=== PATIENT | female | born 1950 | race Caucasian/White ===

== ENCOUNTER → 2016-05-08 | Outpatient (CLI) | payer BC ==
--- NOTE | 2016-05-11 13:47 | MAMMOGRAPHY REPORT ---
BILATERAL DIGITAL SCREENING MAMMOGRAM WITH CAD: 05/08/2016 TECHNIQUE: Current study was also evaluated with a Computer Aided Detection (CAD) system. Bilatera l CC and MLO views were obtained. COMPARISON: Comparison is made to exams dated: 05/06/2015 mammogram, 05/04/2014 mammogram, 05/03/2013 mammogram, 05/01/2011 mammogram, 05/02/2012 mammogram, and 04/30/2010 mammogram - [facility]. BREAST COMPOSITION: There are scattered areas of fibroglandular density in both breasts. FINDINGS: No suspicious masses, calcifications, or areas of architectural distortion are noted in e ither breast. There has been no significant interval change compared to prior exams. IMPRESSION: ACR BI-RADS CATEGORY 1: NEGATIVE There is no mammographic evidence of malignancy. A 1 year screening mammogram is recommended. The p atient will receive written notification of the results. Approximately 10% of breast cancers are not detected with mammography. A negative mammographic repor t should not delay biopsy if a clinically suggestive mass is present. Alanna Walsh M.D. ah/:05/08/2016 12:12:03 Bid Clerk: Rayna FLYNN(Linda)(M), [facility] letter sent: Normal 1/2 BI-RADS Code: ACR BI-RADS Category 1: Negative
== END | disposition home or self-care (01) ==
LOC: C.MAMM 10:24
PROVIDERS: ATTEND Obstetrics & Gynecology
DX: Z12.31 Encounter for screening mammogram for malignant neoplasm of breast (principal)

== ENCOUNTER → 2017-01-11 | Outpatient (CLI) | payer BC ==
[2017-01-11 12:52] LABS: HEMATOCRIT 43.5 % (37-47); MEAN CELL VOLUME 92.4 fL (80-100); MEAN CORPUSCULAR HEMOGLOBIN 31.2 pg (25-34); MEAN CORPUSCULAR HGB CONC 33.8 g/dl (32-36); MEAN PLATELET VOLUME 11.2 fL (7.4-10.4); PLATELET COUNT 238 K/uL (130-400); RED BLOOD COUNT 4.71 M/uL (4.2-5.4); WHITE BLOOD COUNT 6.34 K/uL (4.8-10.8)
[2017-01-11 13:24] LABS: ALT/SGPT 36 U/L (12-78); AST/SGOT 22 U/L (15-37); BLOOD UREA NITROGEN 16 mg/dl (7-18); BUN/CREATININE RATIO 19.9 (10-20); CALCIUM 8.8 mg/dl (8.5-10.1); CARBON DIOXIDE 29 mmol/L (21-32); CHLORIDE 105 mmol/L (98-107); GLUCOSE 79 mg/dl (70-99); MAGNESIUM 2.1 mg/dl (1.8-2.4); POTASSIUM 4.3 mmol/L (3.5-5.1); SODIUM 139 mmol/L (136-145)
[2017-01-11 13:26] LABS: ALKALINE PHOSPHATASE 55 U/L (45-117); PHOSPHORUS 3.4 mg/dl (2.5-4.9)
[2017-01-11 13:28] LABS: BASO ABS # 0.11 K/uL (0-0.2); BASOPHIL % 1.8 %; EOSINOPHIL % 4.4 %; LYMPH ABS # 1.11 K/uL (1.2-3.4); LYMPHOCYTE % 17.5 %; MDIFF REQUEST Y; NEUTROPHILS % 56.1 %; VARIANT LYM ABS # 0.78 K/uL; VARIANT LYMPHOCYTE % 12.3 %
== END | disposition home or self-care (01) ==
LOC: C.LABPVFM 10:03
PROVIDERS: ATTEND Internal Medicine Hematology & Oncology
DX: C18.7 Malignant neoplasm of sigmoid colon (principal)

== ENCOUNTER → 2017-05-11 | Outpatient (CLI) | payer BC ==
--- NOTE | 2017-05-13 08:03 | MAMMOGRAPHY REPORT ---
BILATERAL DIGITAL SCREENING MAMMOGRAM TOMOSYNTHESIS WITH CAD: 05/11/2017 CLINICAL HISTORY: Routine screening. Patient has no complaints. TECHNIQUE: Breast tomosynthesis in addition to standard 2D mammography was performed. Current study was also evaluated with a Computer Aided Detection (CAD) system. COMPARISON: Comparison is made to exams dated: 05/08/2016 mammogram, 05/06/2015 mammogram, 05/04/2014 ma mmogram, 05/03/2013 mammogram, 05/02/2012 mammogram, and 04/30/2010 mammogram - [facility]ter. BREAST COMPOSITION: There are scattered areas of fibroglandular density in both breasts. FINDINGS: The parenchymal pattern is unchanged. No developing mass, architectural distortion or clus ter of suspicious microcalcifications is seen in either breast. IMPRESSION: ACR BI-RADS CATEGORY 2: BENIGN There is no mammographic evidence of malignancy. A 1 year screening mammogram is recommended. The pa tient will receive written notification of the results. Approximately 10% of breast cancers are not detected with mammography. A negative mammographic report should not delay biopsy if a clinically suggestive mass is present. Kelsy Villa M.D. ay/:05/11/2017 16:32:57 Construction Sales Manager: Bri White, [facility] letter sent: Normal 1/2 BI-RADS Code: ACR BI-RADS Category 2: Benign
== END | disposition home or self-care (01) ==
LOC: C.MAMM 10:03
PROVIDERS: ATTEND Obstetrics & Gynecology
DX: Z12.31 Encounter for screening mammogram for malignant neoplasm of breast (principal)

== ENCOUNTER 2021-08-25 07:24 | Observation (INO) ==
--- NOTE | 2021-08-18 11:40 | History & Physical Report ---
Date of Service August 18, 2021 Assessment & Plan (1) Fracture of head of right humerus: Plan: PRE-OP Diagnosis: Right proximal humerus fracture Planned Procedure: Right reverse total shoulder arthroplasty Plan: Patient is scheduled to undergo this procedure at the [facility] with Dr. Vitor Lopez on Wednesday, September 02, 2021. Risks and complications of the procedure such as: Infection, bleeding, pain, scarring, nerve blood vessel damage, weakness, wound problems, stiffness, incomplete relief of symptoms, hardware failure, hardware loosening, wear, fracture, tendon or ligament injury, blood clots, embolism, heart attack, stroke and were explained to the patient at her visit today. Informed consent from the procedure was obtained. Patient also understands risks of proceeding with surgical intervention during the COVID-19 pandemic currently she is asymptomatic and understands that she will need to be tested prior to surgery. Patient is scheduled to meet with anesthesia next week. While there she will obtain a CBC with differential, complete metabolic panel, PT/INR, PTT, blood type and screen, urinalysis, urine culture and sensitivity, EKG, chest x-ray, hemoglobin A1c. We will also need to obtain preoperative medical clearance from the patient's primary care provider Dr. Russ.Patient was advised that she will be admitted for overnight stay for pain control. She will be provided with prescriptions for pain relieving agents upon discharge from the hospital. She is scheduled for her initial physical therapy appointment in our PT clinic on August 28 at 10:30 AM. She will see Lauren Marcus PA-C on September 04 at 10:45 AM for 2-week postoperative follow-up. Patient and verbalized understanding of all information provided during today's visit. They thanked us for the care that they have received. If they have questions or concerns arise prior to that appointment, they will contact clinic. Encounter type: initial encounter Fracture type: closed Qualified Code(s): S42.291A - Other displaced fracture of upper end of right humerus, initial encounter for closed fracture History of Present Illness Chief Complaint: Chief Complaint: Right shoulder injury Primary Care Provider: Kassie Tubbs MD History of Present Illness (including history relevant to procedure): This 70-year-old female presents the clinic today for her initial evaluation by Dr. Oma couch for a right shoulder proximal humerus fracture that she sustained after walking in the [place] with a [employer] group yesterday. Patient states she tripped and fell on her outstretched right upper extremity. She was seen at the emergency department, diagnosed with a fracture and advised to follow-up with an reliability specialist. After the x-ray confirmed the fracture a CT was also ordered for surgical purposes. Review Of Systems: A 12 point review of systems is formed and is unremarkable except for those things stated in the HPI and past medical history. Past Medical History: Problems: Proximal humerus fracture Shoulder injury History of colon cancer Procedure History Procedure Procedure Date Comments Colon resection 2004 Allergies and Sensitivities: Adhesive bandage(Itch) Social history: Completely unremarkable Family history: Cancer Current Home Meds: (Last Updated 08/14 12:11) alendronate (Fosamax 70 mg oral tablet) 70 mg PO weekly calcium carbonate (Caltrate) PO Daily multivitamin PO Daily ondansetron (Zofran 4 mg oral tablet) 4 mg PO q8h PRN: as needed for nausea/vomiting unknown medication pain med from ER Vital Signs: Height: 154 cm; weight: 62 kg; blood pressure: 112/74; pulse: 64; temperature: 36.6; oxygen saturation: 97% Allergies Allergy/AdvReac Type Severity Reaction Status Date / Time adhesive tape Allergy Verified 10/15/20 12:59 latex Allergy Verified 10/15/20 12:59 No Known Drug Allergies Allergy Verified 10/15/20 12:59 Home Medications Medication Instructions Recorded Confirmed Type [id number] fumarate PO 09/16/18 10/15/20 History [Calcium Plus Vitamin D-Iron] multivit with min-folic acid PO 09/16/18 10/15/20 History [Adult One Daily Multivitamin] alendronate 70 mg tablet 70 mg PO .COMPLEX #12 tab 06/13/21 Rx hydrocodone 5 mg-acetaminophen 325 1 - 2 tab PO Q4H PRN #30 tab 08/13/21 Rx mg tablet Past Med/Surg History Medical History Adenocarcinoma of colon Status post bowel resection and chemotherapy. Endometrial polyp Osteoporosis Pelvic floor relaxation Second degree uterine prolapse Surgical History H/O bilateral oophorectomy History of partial colectomy Family History Sister Breast cancer Father Myocardial infarction Other Colon cancer Denies family history of Ovarian cancer Prostate cancer Social History Smoking Status: Never smoker Second Hand Exposure: No; Hx Alcohol Use: Yes Alcohol type: wine Alcohol Intake Frequency Comment: on sundays- Hx Substance Use: No Preferred Language: Mongolian Communication Ability: Effective Hearing Ability: Normal marital status: Current Living Situation: Spouse current occupational status: retired current occupation: Homemaker Feels Safe at Home: Yes Childhood Exposure to Second-Hand Smoke: No caffeine: No Dental Care, Regularly: Yes Physical Activity Frequency: Daily Seatbelt Use: always Sunscreen Use: Yes (sometimes) Review of Systems All systems reviewed & are unremarkable except as noted in Subjective Physical Exam Physical Exam: Physical Exam: (relevant to the procedure, including heart and lung evaluation) General: Alert and oriented x3 with proper grooming and hygiene Eyes: Pupils are equal and reactive to light with accommodation. Extraocular movements are intact Throat: Deferred due to COVID-19 precautions Cardiac: Regular rate and rhythm with no murmurs or gallops appreciated Lungs: Clear to auscultation throughout no wheezing, rales or rhonchi Abdomen: Mildly obese, nondistended, nontender with NABS Extremities: Right shoulder; Motor to her median, radial, ulnar, AIN, PIN, and musculocutaneous nerves are intact. 2+ radial pulse. + Swelling and bruising about the shoulder and upper arm. ++ Tenderness palpation about the shoulder. Deferred ROM of the shoulder due to the fracture. Patient has no strength with abduction of the arm. Neuro: Cranial nerves II through XII are intact no motor or sensory deficit Skin: Normal in appearance with no open skin areas or discharge Results & Data ([facility]) Diagnostic Findings Studies (relevant to the procedure): radiographs and CT scan from the emergency room performed August 13, 2021, which showed a comminuted displaced intra-articular proximal humerus fracture. There are 3 main parts that include the greater tuberosity, shaft, and the articular surface, with many other small fragments, the calcar appears intact.
--- NOTE | 2021-08-20 08:23 | PAT Medication Instructions ---
Medication Instructions Date of Service August 20, 2021 Home Medications alendronate 70 mg tablet 70 mg PO WK calcium carb-ergocalciferol (vit D2) 600 mg calcium-200 unit tablet 1 tab PO QAM multivitamin 1 cap PO QAM tramadol 50 mg tablet 50 mg PO Q8H PRN Continue as directed alendronate 70 mg tablet 70 mg PO WK (do not take day of surgery) DO NOT take the morning of surgery calcium carb-ergocalciferol (vit D2) 600 mg calcium-200 unit tablet 1 tab PO QAM multivitamin 1 cap PO QAM Take morning of surgery With a small sip of water, OTHERWISE NOTHING TO EAT OR DRINK AFTER MIDNIGHT: tramadol 50 mg tablet 50 mg PO Q8H PRN(if needed) Take evening before surgery tramadol 50 mg tablet 50 mg PO Q8H PRN(if needed) Other Notes If you have any questions please call us at [phone] or [phone] or [phone] or [phone]
--- NOTE | 2021-08-20 08:57 | Anesthesiology Consultation ---
Date of Service August 20, 2021 Assessment & Plan (1) Encounter for pre-operative examination: - PCP 08/19/21: "...recent complex Right humeral fracture- patient following with ortho. anticipates Right Reverse total shoulder replacement on 08-25-21...patient cleared as a low risk for surgery...Right LE edema...did land on her Right thigh during the fall, has some tenderness in the Right thigh, denies bruising of the Right thigh...08-19-21 U/S neg for dvt..." - COVID screening: Per assessment on 08/20/2021: Travel screen negative, no known COVID-19 positive contacts or current COVID-19 related symptoms in past 2 weeks. Pt vaccinated. Surgeon arranging preop COVID testing, scheduled 08/21/2021. Awaiting results. Chart Review Chart Review: Acceptable Risk for Surgery and Patient seen in Pre Admission Te sting Teaching & Discussion Pre-Anesthesia Teaching/Discussion Notes: Instructed NPO after midnight before surgery, except medications with 15 cc of water. Medication instructions provided according to the PAT guidelines. History Surgery Operation Date: 08/25/21 09:30 Proposed Procedures p Right Total Shoulder Arthroplasty Reverse - Vitor Pippa Lopez MD Height/Weight Height: 5 ft 1 in Weight: 63.9 kg Allergies Allergy/AdvReac Type Severity Reaction Status Date / Time latex Allergy Mild rash Verified 08/20/21 09:13 No Known Drug Allergies Allergy Verified 08/20/21 07:44 Medications Home Medications Medication Instructions Recorded Confirmed Last Taken alendronate 70 mg tablet 70 mg PO WK 08/20/21 08/20/21 Unknown calcium carb-ergocalciferol (vit 1 tab PO QAM 08/20/21 08/20/21 Unknown D2) 600 mg calcium-200 unit tablet multivitamin 1 cap PO QAM 08/20/21 08/20/21 Unknown tramadol 50 mg tablet 50 mg PO Q8H PRN 08/20/21 08/20/21 Unknown Past Medical History Medical History (Updated 08/20/21 @ 08:50 by Amarilis Bro PA-C) Adenocarcinoma of colon dx 2004 Status post bowel resection and chemotherapy last dose of chemo 2006 Osteoporosis Pain in leg, unspecified and swelling RLE s/p fall-negative venous doppler, following with PCP PONV (postoperative nausea and vomiting) Second degree uterine prolapse Patient denies h/o stroke, seizures, heart attack, heart failure, DM, HTN, blood clots or blood transfusions. Exercise / Class Metabolic Activity II 4-5 Yardwork/Stairs/Walk up hill (denies CP or SOB with 1 FOS) Past Family History Family History Sister Breast cancer Father Myocardial infarction Other Colon cancer Denies family history of Ovarian cancer Prostate cancer Past Surgical History Surgical History H/O bilateral oophorectomy removed when had colon cancer surgery History of partial colectomy Hx of colonoscopy Past Anesthesia History No Hx of Anesthesia Complications and No Family Hx of Anesthesia Complications History of PONV No Hx of Motion Sickness and History of PONV (denies needing scop patch) Social History Smoking Status: Never smoker Do You Dip or Chew Tobacco: No Hx Alcohol Use: No Hx Substance Use: No substance use type: does not use Review of Systems Patient denies chest pain, shortness of breath, dyspnea on exertion, snoring, witnessed apneas, reflux, fever, chills, cough, wheezing, or palpitations. Physical Exam Vital Signs Vitals BP 130/77 P 66 TEMP 98.8 SP02 97% on RA RESP 17 Physical Full cervical extension range of motion without pain TMD 3.5 finger breaths Mallampati Score 2 Dentition: intact, missing lower left side; bridges front upper; denies chipped or loose teeth, caps/crowns Lungs: normal respiratory effort. Clear throughout to auscultation, no adventitious breath sounds Cardiac: regular rate and rhythm, no murmurs noted Carotid arteries: negative bruit bilat Lab Results Anesthesia Preop Results Results Anesthesia Widget: WBC 6.00 K/uL (4.8-10.8) 08/20/21 Hgb 11.2 g/dL (12.0-16.0) L 08/20/21 Hct 34.0 % (37-47) L 08/20/21 Plt 299 K/uL (130-400) 08/20/21 Na 141 mmol/L (136-145) 08/20/21 K 4.2 mmol/L (3.5-5.1) 08/20/21 Cl 104 mmol/L (98-107) 08/20/21 CO2 31 mmol/L (21-32) 08/20/21 BUN 13 mg/dl (6-23) 08/20/21 Creat 0.72 mg/dl (0.6-1.2) 08/20/21 Glucose Level 101 mg/dl (70-99(Fasting)) H 08/20/21 PT 10.9 Seconds (9.0-12.0) 08/20/21 PTT 24.1 Seconds (21.0-31.0) 08/20/21 INR 1.0 (0.9-1.1) 08/20/21 HA1c 5.6 % (4.5-5.6) 08/20/21 Urine Color Yellow 08/20/21 Urine Appearance Clear (Clear) 08/20/21 Urine pH 7.0 (4.5-7.5) 08/20/21 Urine Specific [place] 1.005 (1.000-1.030) 08/20/21 Urine Protein Negative (Negative) 08/20/21 Urine Glucose (UA) Negative (Negative) 08/20/21 Urine Ketones Negative (Negative) 08/20/21 Urine Blood Trace (Negative) H 08/20/21 Urine Nitrite Negative (Negative) 08/20/21 Urine Bilirubin Negative (Negative) 08/20/21 Urine Urobilinogen Negative (Negative) 08/20/21 Urine Leukocyte Esterase 1+ (Negative) H 08/20/21 Urine WBC (Auto) 1-5 /hpf (0-5) 08/20/21 Urine RBC (Auto) 0-4 /hpf (0-4) 08/20/21 Urine Hyaline Casts (Auto) 0 /lpf (0-5) 08/20/21 Urine Epithelial Cells (Auto) 10-20 /lpf (0-5) H 08/20/21 Urine Bacteria (Auto) Negative (Negative) 08/20/21 Blood Type A Positive 08/20/21 Antibody Screen NEGATIVE 08/20/21 Testing Electrocardiogram Date: 08/20/21 NSR, rate 66 bpm Chest X-Ray Date: 08/20/21 Frontal and lateral radiographs of the chest demonstrate the cardiomediastinal silhouette to be within normal limits. The lungs are clear of alveolar opacities. There is no evidence for effusion bilaterally. There is no evidence for vascular congestion. There is a comminuted right humeral head and neck fracture. IMPRESSION: 1. No acute cardiopulmonary disease. Other Testing Venous doppler 08/19/21 No evidence of deep venous thrombus
[~2021-08-25 07:24] MED LIST: ACETAMINOPHEN 500 MG TAB PO SCH; BUPIVACAINE 0.5 % 5 MG/1 ML PF 10ML VIAL ONE; CeleBREX 200 MG CAP PO SCH; FAMOTIDINE 20 MG TAB PO SCH; LR 15ML/HR IV SCH; LR 60ML/HR IV SCH; ROPIVACAINE 0.5% HCL/PF 150 MG, BUPIVACAINE 0.75% MPF 20 ML, EPINEPHrine 0.15 MG, Ketor... INFIL SCH; Scopolamine 1 MG TDSY TD SCH; TRANEXAMIC ACID 1,000 MG **IV Intra-op IV SCH; TRANEXAMIC ACID 1,000 MG **IV Pre-op IV SCH; ceFAZolin 1000MG 1,000 MG/7.5 ML SYR IV SCH; dexAMETHasone 4 MG TAB PO SCH; traMADol HCL 50 MG TABLET PO SCH
--- NOTE | 2021-08-25 09:29 | History & Physical Bridge Note ---
Date of Service August 25, 2021 History & Physical Bridge Note I have examined the patient, reviewed the History & Physical and in the interval since the performance of the History & Physical I have noted the following changes of clinical significance: no changes noted Patient is aware of the risks, is asymptomatic,and tested negative for COVID-19.
[2021-08-25] MEDS ORDERED: FLUMAZENIL 0.1 MG/1 ML 10 ML VIAL IV PRN (09:50)
[2021-08-25] MEDS ORDERED: PROMETHAZINE HCL 12.5 MG in SODIUM CHLORIDE 0.9% 50 ML IV PRN (09:50)
[2021-08-25] MEDS ORDERED: HYDROmorphone INJ 1 MG/ML SYRINGE IV PRN (09:50)
[2021-08-25] MEDS ORDERED: LABETALOL HCL IV 5 MG/ML 20ML IV PRN (09:50)
[2021-08-25] MEDS ORDERED: LIDOCAINE 2% 2 ML VIAL/AMP(20MG/ML) INFIL ONE (09:50)
[2021-08-25] MEDS ORDERED: ePHEDrine sulfate 50 MG/ML AMP IV PRN (09:50)
[2021-08-25] MEDS ORDERED: PROPOFOL IV EMULSION 10 MG/ML 20 ML VIAL IV ONE (09:50)
[2021-08-25] MEDS ORDERED: NALOXONE HCL 0.4 MG/1 ML VIAL/CARP IV PRN ×2 (09:50→15:26)
[2021-08-25] MEDS ORDERED: ONDANSETRON INJ 2 MG/ML 2 ML VIAL IV PRN ×2 (09:50→15:26)
[2021-08-25] MEDS ORDERED: fentaNYL citrate 100 MCG/2 ML VIAL IV PRN (09:50)
[2021-08-25] MEDS ORDERED: ATROPINE SULFATE 0.1 MG/ML 10ML SYR IV PRN (09:50)
[2021-08-25] MEDS ORDERED: fentaNYL citrate 100 MCG/2 ML VIAL ONE (09:55)
[2021-08-25] MEDS ORDERED: MIDAZOLAM HCL 1 MG/ML 2ML VIAL ONE (09:55)
[2021-08-25] MEDS ORDERED: ROCURONIUM BROMIDE 10 MG/ML 5 ML VIAL IV ONE ×8 (10:16→15:02)
[2021-08-25] MEDS ORDERED: LIDOCAINE 1%/EPINEPHRINE 1:100,000 50 ML VIAL ONE (10:27)
[2021-08-25] MEDS ORDERED: BUPIVACAINE 0.5 % 5 MG/1 ML MPF 30ML VIAL ONE (10:27)
[2021-08-25] MEDS ORDERED: ORTHO JOINT ANESTHETIC ONE (10:27)
[2021-08-25] MEDS ORDERED: GLYCOPYRROLATE 0.2 MG/ML VIAL ONE ×2 (11:23→12:07)
[2021-08-25] MEDS ORDERED: ONDANSETRON INJ 2 MG/ML 2 ML VIAL ONE (11:46)
[2021-08-25] MEDS ORDERED: SUCCINYLCHOLINE CHLORIDE 20 MG/ML 10 ML VIAL IV ONE (11:55)
[2021-08-25] MEDS ORDERED: NEOSTIGMINE METHYLSULFATE 1 MG/ML 10ML VIAL ONE (12:07)
[2021-08-25] MEDS ORDERED: ceFAZolin 330 MG/ML 1 GM VIAL ONE (13:54)
[2021-08-25] MEDS ORDERED: SODIUM CHLORIDE 0.9% INJ 10 ML VIAL ONE (13:55)
[2021-08-25] MEDS ORDERED: ceFAZolin 1000MG 1,000 MG/7.5 ML SYR IV STA (14:27)
--- NOTE | 2021-08-25 14:43 | Post Operative Brief Note ---
Immediate Post Op Note v1 Date of Surgery August 25, 2021 Pre & Post Diagnosis Operation Date: 08/25/21 09:45 Pre-Op Diagnosis: Right Proximal Humerous Fracture, comminuted. Post-Op Diagnosis: Right Proximal Humerous Fracture, comminuted. I identified the patient and participated in the time-out.: Yes Procedure Operation Date: 08/25/21 09:45 Actual Procedures p Right Reverse Total Shoulder Arthroplasty (Right) - Vitor Lopez MD Surgeon Vitor Lopez MD [employer] Automation Engineer Skip Marcus PA-C (No fellow avail) Estimated Blood Loss 100 Findings Consistent with Post-Op Diagnosis Fluids 1300 cc Specimens Right shoulder contents Anesthesia Type General Regional Complications none
--- NOTE | 2021-08-25 14:44 | Operative Report ---
Post Operative Report Pre & Post Diagnosis Operation Date: 08/25/21 09:45 Pre-Op Diagnosis: Right Proximal Humerous Fracture, comminuted. Post-Op Diagnosis: Right Proximal Humerous Fracture, comminuted. I identified the patient and participated in the time-out.: Yes Procedure Operation Date: 08/25/21 09:45 Actual Procedures p Right Reverse Total Shoulder Arthroplasty(Right) - Vitor Lopez MD Surgeon Vitor Lopez MD Teacher Adult Education M KADEN Marcus (No fellow avail) Estimated Blood Loss 100 Findings See Below Shoulder ROM Pre-op: FF 90 deg; Abd 85 deg w/ significant crepitus; ER 15 deg; IR 0 deg There was significant comminution of the proximal humerus and humeral head. The was degenerative changes of the long head of the biceps. Shoulder ROM Post-op: FF 140 deg; Abd 140 deg; ER 50 deg; IR 20 deg Fluids 1300 cc Specimens Right shoulder contents Anesthesia Type General Regional Complications none Indications Patient is a 70-year-old female who fell fracturing her right shoulder, proximal humerus with pain and decreased mobility. I recommended that she undergo a right shoulder Reverse TSA. The patient understands the risks of the operation including bleeding, infection, re-operation, damage to nerves and arteries, continued shoulder pain, shoulder stiffness, infection, and/or loosening of the components which may require additional surgery. The patient also understands the risks of heart attack, stroke, pulmonary embolus, and . The patient wished to proceed and the consent form was signed. Description of Procedure IMPLANTS: Arthrex 1) Humeral Stem 7 Univers Reverse Stem, with size 36 Right Offset Suture Cup at 135. 2) Humeral Liner 36, + 6/33. 3) Glenoid Modular Baseplate 24 mm, 10deg Full Augment, 2+ Lateralized & Central Post 10 x 20 mm. 4) Glenosphere 33 mm + 4 offset. 5) Glenoid Locking screw 5.5 x 24 mm. 6) Glenoid Non-Locking screw 4.5 x 20 mm x 2. M KADEN Marcus is assisting with positioning, retracting, and closure due to fellow not available. PROCEDURE: The patient was taken to the Operating Room and placed in the beach-chair position after administration of an interscalene block and general anesthesia. 2 g of intravenous Ancef was administered. The right shoulder was then prepped and draped in the standard sterile fashion. Sequential compression devices were placed in the legs. The patient was identified and a multidisciplinary time-out identified the right shoulder as the correct shoulder and operative limb. First, the coracoid and planned deltopectoral incision was marked and then anesthetized with a 50:50 mixture of 1% lidocaine and 0.5% Marcaine with epinephrine. Sharp dissection was carried down to the deltopectoral interval. The cephalic vein was identified and protected laterally as was the deltoid. The clavipectoral fascia was then incised and a self-retaining shoulder retractor was placed beneath the conjoined tendon and deltoid muscle, exposing the subscapularis tendon. The superior 1cm of the pec major was released. The biceps tendon was identified in its groove and had degeneration it was tenodesed to the pec major tendon with #1 Vicryl. The biceps tendon was unroofed from its groove, and the rotator interval was split to the base of the coracoid and the biceps was released from the glenoid. The fracture was used to gain access to the joint. The Tuberosities were tagged and hematoma was removed. The humeral head fragments were removed as they were encountered. Next, the humeral shaft was dislocated by adducting, extending, and externally rotation and the capsulotomy was carried down all the way around to the posterior aspect of the humeral head, taking care to stay on bone. Any loose fragments were removed with a rongeur and I identified the medial calcar on the humeral neck. The humeral intramedullary entry point was entered with a 2.4mm guide pin, followed by 6 mm drill, and then IM reamer. The IM reamer was removed. Our attention was drawn to the glenoid. The humerus was retracted and displaced posteriorly. The labrum was circumferentially removed as was the anterior capsule, which was carefully dissected free from the subscapularis tendon. The glenoid was exposed with Canseco/90 deg retractor superiorly, Davion retractor anteriorly, and Batman retractor posteriorly. The glenoid was prepped with curettes to remove any remaining cartilage. Using the specific VIP patient specific glenoid aiming guide for a 24 mm baseplate was used to place the 2.8 mm guide wire. The glenoid surface was prepped for the baseplate with the glenoid reamers (peripheral and inferior offset). The modular central post was prepped with cannulated 10 mm drill, to depth of 20 mm. The baseplate with central post was impacted flush to the glenoid. The inferior screw hole was drilled first followed by the superior screw and a first placing non-locking screws were plac ed. They were switched to locking screws with good purchase with the anterior superior hole. The posterior inferior screw was removed as it did not have good purchase. The other 2 holes were used and non-locking screws were placed in the standard fashion. The baseplate was well fixed to the glenoid. The glenosphere was inserted onto the baseplate and locked into place in the standard fashion. The humerus was dislocated and humeral broaches 5 through 7 were sequentially placed in the humeral shaft until excellent fit. The A/P position of the broach was checked. The central reamer guide was placed. The humeral cup reamer was used, but due to the fracture it did not remove any further bone. The Tuberosities had sutures placed through them and the shaft for later repair. The 7 stem was impacted into place with excellent purchase was achieved. The humeral trial liner was 6 mm was placed. The shoulder was reduced with excellent fit and good stability of 1+ translation anteriorly and posteriorly. The shoulder ROM showed improved motion noted above. The definitive humeral liner was then placed. The tuberosities were repaired by tying the sutures to the shaft, implant, cerclage suture, and sutures to each other. The implant was nearly completely covered with the Tuberosities and rotator cuff. The rotator interval was closed with a single #1 Vicryl. The ROM and stability was unchanged. The pulsatile lavage was used to copiously irrigate the wound throughout the case. The deltopectoral interval was re-approximated with #1-Vicryl, the subcutaneous tissue was closed with 3-0 Vicryl, and the skin was closed with ZipLine and Shield. The wounds were dressed with sterile gauze, and Tegaderm. The patient was then transferred to the PACU in stable condition after application of an abduction sling. POST-OP: The patient will be admitted for observation overnight. Patient will be seen by PT/OT prior to discharge. Pain medicine will be used as needed. The patient was placed in an abduction sling. I attest to the content of the Intraoperative Record and any orders documented therein. Any exceptions are noted below.
[2021-08-25] MEDS ORDERED: bisacodyL 10 MG SUPP PR PRN (15:26)
[2021-08-25] MEDS ORDERED: MAGNESIUM HYDROXIDE SUSP 30 ML UDC PO PRN (15:26)
[2021-08-25] MEDS ORDERED: HYDROmorphone INJ 0.5 MG/0.5 ML SYR IV PRN (15:26)
[2021-08-25] MEDS ORDERED: oxyCODONE HCL IR 5 MG TAB (IMMEDIATE RELEASE) PO PRN (15:26)
[2021-08-25] MEDS ORDERED: METOCLOPRAMIDE HCL INJ 5 MG/ML 2 ML VIAL IV PRN (15:26)
--- NOTE | 2021-08-25 15:26 | Operative Report ---
Post Operative Report Pre & Post Diagnosis Operation Date: 08/25/21 09:45 Pre-Op Diagnosis: Right Proximal Humerous Fracture, comminuted. Post-Op Diagnosis: Right Proximal Humerous Fracture, comminuted. I identified the patient and participated in the time-out.: Yes Procedure Operation Date: 08/25/21 09:45 Actual Procedures p Right Total Shoulder Arthroplasty Reverse(Right) - Vitor Lopez MD Surgeon Dr Vitor Lopez Machine Room Engineer Skip Marcus PA-C (No fellow avail) Estimated Blood Loss 100 Findings Consistent with Post-Op Diagnosis Specimens humeral head Description of Procedure Pt was taken to operating room, placed under general anesthesia with peripheral nerve block. Pt was given 2g Ancef IV and another 2gram at the 4 hour zuleika. Prepped and draped in sterile fashion. I was present during the entire case and assisted with positioning, instrumentation, closure and dressings. Please see Dr. Lopez's op report for further detail. Pt was awake and transferred to PACU in stable condition I attest to the content of the Intraoperative Record and any orders documented therein. Any exceptions are noted below.
--- NOTE | 2021-08-25 15:38 | Fluoroscopy Report ---
FL shoulder RT 1V CLINICAL HISTORY: FOREIGN OBJECT RIGHT SHOULDER TECHNIQUE: 1 views were obtained with the C-arm in the OR with the above procedure. Total fluoroscopy time was 1.4 seconds. Total skin dose was 0.1 mGy. Comparison: None available at the time of this dictation. FINDINGS/IMPRESSION: Intraoperative images were obtained of reduction and fixation of right humeral h ead and neck fracture. Please correlate with intraoperative fluoroscopy and operative report. ACT 112: Negative or not required by law. Electronically signed by: Jeffy Nj M.D. 08/25/2021 3:37 PM
--- NOTE | 2021-08-25 15:53 | XRay Report ---
XR shoulder RT min 2V routine CLINICAL HISTORY: Post shoulder surgery TECHNIQUE: 3 views of the right shoulder were obtained. Comparison: Comparison is made to shoulder radiograph 08/13/2021 and total fluoroscopy 08/25/2021 FINDINGS: Interval placement of right reverse shoulder arthroplasty. Interval reduction of previously noted com minuted humeral head and neck fracture. Expected postsurgical changes are seen including soft tissue swelling and subcutaneous emphysema. The visualized portions of the lungs are clear. IMPRESSION: Expected postoperative appearance status post placement of shoulder arthroplasty. ACT 112: Negative or not required by law. Electronically signed by: Jeffy Nj M.D. 08/25/2021 3:51 PM
[2021-08-25] MEDS ORDERED: Scopolamine CHECK PATCH PLACEMENT SCH (16:00)
--- NOTE | 2021-08-25 16:00 | Anesthesiology Progress Note ---
Date of Service August 25, 2021 Anesthesia Post Procedure Vital Signs Vital Signs: Temp Pulse Pulse Resp BP Pulse Ox 08/25/21 15:50 56 L 16 114/64 96 08/25/21 15:40 56 L 16 104/61 98 08/25/21 15:30 59 L 16 112/57 L 97 08/25/21 15:23 96.8 F L 60 16 110/64 98 08/25/21 07:51 98.6 F 68 20 154/79 H 97 Transfer of Care Handoff Completed per policy Notes Mental Status: alert / awake / arousable and participated in evaluation Patient Amnestic to Procedure: Yes Nausea / Vomiting: adequately controlled Pain: adequately controlled Airway Patency, RR, SpO2: stable & adequate BP & HR: stable & adequate Hydration State: stable & adequate Anesthetic Complications: no major complications apparent and Pt Satisfied with anesthetic care
--- NOTE | 2021-08-25 18:32 | Hospitalist Consultation ---
Date of Consultation August 25, 2021 Assessment & Plan (1) Fracture of head of right humerus: S/p total reverse right shoulder arthroplasty with Dr. Lopez on 08/25 for a complex proximal humeral fracture. Op note indicates no operative complications. EBL was 100 mL. - Post-op management per primary team. - DVT ppx with ASA 81 mg PO BID per primary team - At risk for acute blood loss anemia; will transfuse or give IV iron as needed (2) Adenocarcinoma of colon: Hx of in 2004. - No present issues. (3) DVT prophylaxis: ASA per primary team. Given medical stability, Hospital Medicine team will sign off. Please re-consult with any questions or concerns. Thank you for letting us assist in the care of this patient! History of Present Illness Attending Physician: Vitor Lopez MD History of Present Illness 70yo F w/ hx of colon cancer who presents as a routine consult after a right shoulder total arthroplasty with Dr. Lopez on 08/25. Patient was seen in the PACU. She reports that her right arm is still quite numb, but otherwise is doing well. She has no pain. She had a fall on 08/13/2021. She came to the ER and had an x-ray and CT scan done. She had a right, communiute displaced intra-articular proximal humerus fracture. She saw Dr. Lopez in the clinic the next day and surgery was recommended. She has had continued pain in the shoulder, and underwent surger today. Allergies Allergy/AdvReac Type Severity Reaction Status Date / Time latex Allergy Mild rash Verified 08/25/21 07:48 No Known Drug Allergies Allergy Verified 08/25/21 07:48 Home Medications Medication Instructions Recorded Confirmed Type alendronate 70 mg tablet 70 mg PO WK 08/20/21 08/25/21 History calcium carb-ergocalciferol (vit 1 tab PO QAM 08/20/21 08/25/21 History D2) 600 mg calcium-200 unit tablet multivitamin 1 cap PO QAM 08/20/21 08/25/21 History tramadol 50 mg tablet 50 mg PO Q8H PRN 08/20/21 08/25/21 History Patient History Medical History (Updated 08/25/21 @ 18:29 by Mumtaz Kauffman MD) Adenocarcinoma of colon dx 2004 Status post bowel resection and chemotherapy last dose of chemo 2006 Osteoporosis Pain in leg, unspecified and swelling RLE s/p fall-negative venous doppler, following with PCP PON[facility] (postoperative nausea and vomiting) Second degree uterine prolapse Surgical History H/O bilateral oophorectomy removed when had colon cancer surgery History of partial colectomy Hx of colonoscopy Family History Sister Breast cancer Father Myocardial infarction Other Colon cancer Denies family history of Ovarian cancer Prostate cancer Social History Smoking Status: Never smoker Second Hand Exposure: No; Do You Dip or Chew Tobacco: No; Tobacco Cessation Education Requested by Patient: No Hx Alcohol Use: No Hx Substance Use: No Preferred Language: Sammarinese Communication Ability: Effective Hearing Ability: Normal Private Pilot Required: No Beliefs That Will Affect Care: None marital status: Current Living Situation: Spouse current occupational status: retired current occupation: Homemaker Other Information That Helps Us Care for You: No Feels Safe at Home: Yes Safety Concerns: Feels Safe At This Time Childhood Exposure to Second-Hand Smoke: No caffeine: No Dental Care, Regularly: Yes Physical Activity Frequency: Daily Seatbelt Use: always Sunscreen Use: Yes (sometimes) Assistive Devices: Glasses Review of Systems Review of Systems: All systems reviewed & are unremarkable except as noted in HPI & below Physical Exam Constitutional: WD/WN, vitals as above no acute distress Eyes: EOM intact bilaterally; no conjunctival abnormality ENMT: external ear and nose normal, oropharynx normal Neck: trachea midline, no thyromegaly normal visual inspection Respiratory: normal respiratory effort, lungs clear to auscultation no respiratory distress Cardiovascular: RRR, no murmur, no edema Gastrointestinal (Abdomen): Inspection/Auscultation: abdomen normal to inspection; abdomen not distended Musculoskeletal: Extremities: + upper extremity abnormal to inspection Right (Right shoulder in sling with ice. Right fingers NV intact.); + abnormal strength Skin: no rashes, warm and dry Neurologic: moves all extremities and awake Psychiatric: Orientation: alert, oriented to person and cooperative Results & Data Results & Data ([facility]) Vital Signs (Past 12 Hours) Vital Signs Temp Pulse Pulse Resp BP Pulse Ox 08/25/21 17:30 69 16 127/54 L 98 08/25/21 17:00 65 16 126/68 97 08/25/21 16:45 36.4 C L 56 L 16 106/62 97 08/25/21 16:30 57 L 16 109/65 97 08/25/21 16:15 57 L 16 113/63 97 08/25/21 16:00 36.5 C 53 L 16 121/62 97 08/25/21 15:50 56 L 16 114/64 96 08/25/21 15:40 56 L 16 104/61 98 08/25/21 15:30 59 L 16 112/57 L 97 08/25/21 15:23 36.0 C L 60 16 110/64 98 08/25/21 07:51 37 C 68 20 154/79 H 97 PG Care Time/CCT Total # of Minutes Spent Total Time Spent with Patient: Total time spent is greater than 50% in coordination of care (as documented) at patient's floor/unit and/or counseling patient: Coding Level of Care Code 05782 Inpt Consult Level 3 Diagnoses Fracture of head of right humerus S42.291A Encounter type: initial encounter Fracture type: closed Adenocarcinoma of colon C18.9 DVT prophylaxis Z29.9 (1) Fracture of head of right humerus Encounter type: initial encounter Fracture type: closed Qualified Code(s): S42.291A - Other displaced fracture of upper end of right humerus, initial encounter for closed fracture
[2021-08-25] MEDS: SODIUM CHLORIDE 0.9% 1000ML 1,000 ML IV SCH (18:45)
[2021-08-25] MEDS: [UNRECOGNIZED DRUG - REMARK] SCH ×5 (18:48→19:45)
[2021-08-25] MEDS: ASCORBIC ACID 500 MG TAB PO SCH (19:51)
[2021-08-25] MEDS: FERROUS GLUCONATE 324 MG TAB PO SCH (19:52)
[2021-08-25] MEDS: ASPIRIN 81 MG ECTAB PO SCH (19:53)
[2021-08-25] MEDS: DOCUSATE SODIUM 100 MG CAP PO SCH (19:53)
[2021-08-25] MEDS: ceFAZolin 2000MG 2,000 MG/15 ML SYR IV SCH (20:08)
--- NOTE | 2021-08-25 20:38 | Orthopedic Progress Note ---
Date of Service August 25, 2021 Assessment & Plan (1) Fracture of head of right humerus: Plan: POD #0 s/p Right Revision TSA, doing as well as expected, block is still working. Resume diet. WBAT. No lifting more than a cup of coffee. OOB to chair. Continue pain control. DVT prophylaxis: TEDs 2 weeks, foot pumps while in hospital, ASA 81 mg BID for 4 weeks. PT/OT. D/C planning. Present on Admission?: Yes Admission and Anticipated Discharge Date Admission Date: August 25, 2021 Subjective Doing well. Still do not feel my hand. Physical Exam Physical Exam: RUE: Dressing is clean, dry, intact. Light touch is diminished throughout. Able to flex and extend digits. BCR < [address] Results & Data ([facility]) Vital Signs (Past 12 Hours) Vital Signs Temp Pulse Pulse Resp BP Pulse Ox 08/25/21 19:57 36.8 C 67 16 102/60 97 08/25/21 19:11 36.6 C 68 16 127/73 97 08/25/21 18:00 36.8 C 80 16 124/77 98 08/25/21 17:30 69 16 127/54 L 98 08/25/21 17:00 65 16 126/68 97 08/25/21 16:45 36.4 C L 56 L 16 106/62 97 08/25/21 16:30 57 L 16 109/65 97 08/25/21 16:15 57 L 16 113/63 97 08/25/21 16:00 36.5 C 53 L 16 121/62 97 08/25/21 15:50 56 L 16 114/64 96 08/25/21 15:40 56 L 16 104/61 98 08/25/21 15:30 59 L 16 112/57 L 97 08/25/21 15:23 36.0 C L 60 16 110/64 98 Diagnostic Findings Laboratory Results SARS-CoV-2, RNA, NAAT NEGATIVE (NEGATIVE) 08/25/21 07:42 Impressions Shoulder X-Ray 08/25/21 15:26 XR shoulder RT min 2V routine CLINICAL HISTORY: Post shoulder surgery TECHNIQUE: 3 views of the right shoulder were obtained. Comparison: Comparison is made to shoulder radiograph 08/13/2021 and total fluoroscopy 08/25/2021 FINDINGS: Interval placement of right reverse shoulder arthroplasty. Interval reduction of previously noted comminuted humeral head and neck fracture. Expected postsurgical changes are seen including soft tissue swelling and subcutaneous emphysema. The visualized portions of the lungs are clear. IMPRESSION: Expected postoperative appearance status post placement of shoulder arthroplasty. ACT 112: Negative or not required by law. Electronically signed by: Jeffy Nj M.D. 08/25/2021 3:51 PM (1) Fracture of head of right humerus Encounter type: initial encounter Fracture type: closed Qualified Code(s): S42.291A - Other displaced fracture of upper end of right humerus, initial encounter for closed fracture
[2021-08-25] MEDS ORDERED: SENNA 8.6 MG TAB PO SCH (21:00)
[2021-08-25] MEDS: ACETAMINOPHEN 500 MG TAB PO SCH (21:31)
[2021-08-26] MEDS: SODIUM CHLORIDE 0.9% 1000ML 1,000 ML IV SCH (04:36)
[2021-08-26] MEDS: ceFAZolin 2000MG 2,000 MG/15 ML SYR IV SCH (05:43)
[2021-08-26] MEDS: ACETAMINOPHEN 500 MG TAB PO SCH ×2 (05:44→13:07)
[2021-08-26] MEDS ORDERED: SODIUM CHLORIDE 0.9% 1000ML 1,000 ML IV ONE (06:51)
[2021-08-26 08:17] LABS: Basophils # (auto) 0.02 K/uL (0-0.2); Basophils % (auto) 0.2 %; Eosinophils # (auto) 0.02 K/uL (0-0.5); Eosinophils % (auto) 0.2 %; Hematocrit (blood only) 28.4 % (37-47); Hemoglobin 9.4 g/dL (12.0-16.0); Immature Granulocytes # (auto) 0.03 K/uL (0.00-0.02); Immature Granulocytes % (auto) 0.3 %; Lymphocytes # (auto) 1.14 K/uL (1.2-3.4); Lymphocytes % (auto) 10.9 %; Mean Corpuscular Hemoglobin 30.4 pg (25-34); Mean Corpuscular Hgb Conc 33.1 g/dL (32-36); Mean Corpuscular Volume 91.9 fL (80-100); Mean Platelet Volume 9.8 fL (7.4-10.4); Monocytes # (auto) 0.98 K/uL (0.11-0.59); Monocytes % (auto) 9.4 %; Neutrophils # (auto) 8.23 K/uL (1.4-6.5); Platelet Count 287 K/uL (130-400); RDW Coefficient of Variation 13.7 % (11.5-14.5); RDW Standard Deviation 45.5 fL (36.4-46.3); Red Blood Count 3.09 M/uL (4.2-5.4); White Blood Count 10.42 K/uL (4.8-10.8)
[2021-08-26] MEDS ORDERED: MULTIVITAMIN TAB PO SCH (09:00)
[2021-08-26 09:03] LABS: BUN Creatinine Ratio 18.6 (10-20); Calcium 7.1 mg/dl (8.5-10.1); Creatinine Clr Calc Pharmacy 63.5 ml/min; Est GFR (African American) 101.7 ml/min; Est GFR (Non-African American) 87.8 ml/min; Potassium 3.9 mmol/L (3.5-5.1)
[2021-08-26] MEDS: ASPIRIN 81 MG ECTAB PO SCH (09:04)
[2021-08-26] MEDS: ASCORBIC ACID 500 MG TAB PO SCH (09:04)
[2021-08-26] MEDS: FERROUS GLUCONATE 324 MG TAB PO SCH (09:04)
[2021-08-26] MEDS: DOCUSATE SODIUM 100 MG CAP PO SCH (09:04)
--- NOTE | 2021-08-26 09:04 | Orthopedic Progress Note ---
Date of Service August 26, 2021 Assessment & Plan (1) Fracture of head of right humerus: Plan: POD #1 s/p Right Revision TSA, doing as well as expected continue Regular diet. WBAT. No lifting more than a cup of coffee. OOB to chair. Continue pain control. DVT prophylaxis: TEDs 2 weeks, foot pumps while in hospital, ASA 81 mg BID for 4 weeks. PT/OT. Pain medication as needed for pain control. Plan for discharge today to her home later today but will await for PT and OT evaluations. Follow-up as scheduled for her first physical therapy appointment as an outpatient on Will discuss findings with Dr. Lopez. Admission and Anticipated Discharge Date Admission Date: August 25, 2021 Supervising Physician Co-Signing Physician Notes I, Dr. Lopez, saw and examined and agree with the above findings and plan of care discussed with my PA. Low BP gave NS Bolus. Subjective He is doing fairly well today. Happy that she was able to get up and sit at the side of the bed and eat breakfast today. She is tolerating a regular diet. Denies any nausea or vomiting. Denies any chest pain or shortness of breath. She states that the sling is awkward. She denies any numbness or tingling in her hand. She does not have any pain at the fracture site. She is ready to get up and "cleaned up". She has not had any physical therapy or occupational therapy yet this morning. Physical Exam Physical Exam: RUE: Dressing is clean, dry, intact. Light touch is intact. Motor median, radial, ulnar, AIN, PIN intact. BCR < [address] Musculoskeletal: Sling and pillow adjusted on her right arm. She has normal sensation throughout her right hand. She does have mild distal edema into her fingers. She has full flexion extension. Her strength is 5/5. Distal pulses are 1+. Capillary fill is brisk. Nontender throughout her forearm or elbow. She has no tenderness and normal sensation around her right shoulder. Her dressings are clean, dry and intact. No range of motion of her right shoulder was attempted today. Results & Data ([facility]) Vital Signs (Past 12 Hours) Vital Signs Temp Pulse Resp BP Pulse Ox 08/26/21 07:53 36.8 C 62 18 90/54 L 94 08/26/21 04:18 36.9 C 59 L 16 95/59 L 95 08/25/21 22:19 36.7 C 63 16 96/62 L 96 08/25/21 21:12 36.7 C 64 16 100/63 97 Laboratory Results 08/26/21 08/26/21 Range/Units 07:45 07:45 WBC 10.42 (4.8-10.8) K/uL RBC 3.09 L (4.2-5.4) M/uL Hgb 9.4 L (12.0-16.0) g/dL Hct 28.4 L (37-47) % MCV 91.9 (80-100) fL MCH 30.4 (25-34) pg MCHC 33.1 (32-36) g/dL RDW Std Deviation 45.5 (36.4-46.3) fL RDW Coeff of Margot 13.7 (11.5-14.5) % Plt Count 287 (130-400) K/uL MPV 9.8 (7.4-10.4) fL Immature Gran % (Auto) 0.3 % Neut % (Auto) 79.0 % Lymph % (Auto) 10.9 % [place] % (Auto) 9.4 % Eos % (Auto) 0.2 % Baso % (Auto) 0.2 % Neut # (Auto) 8.23 H (1.4-6.5) K/uL Lymph # (Auto) 1.14 L (1.2-3.4) K/uL [place] # (Auto) 0.98 H (0.11-0.59) K/uL Eos # (Auto) 0.02 (0-0.5) K/uL Baso # (Auto) 0.02 (0-0.2) K/uL Immature Gran # (Auto) 0.03 H (0.00-0.02) K/uL Sodium Pending Potassium Pending Chloride Pending Carbon Dioxide Pending Anion Gap Pending BUN Pending Creatinine Pending Est Cr Clr Drug Dosing Pending Est GFR ( Amer) Pending Est GFR (Non-Af Amer) Pending BUN/Creatinine Ratio Pending Glucose Pending Calcium Pending Diagnostic Findings XR shoulder RT min 2V routine CLINICAL HISTORY: Post shoulder surgery TECHNIQUE: 3 views of the right shoulder were obtained. Comparison: Comparison is made to shoulder radiograph 08/13/2021 and total fluoroscopy 08/25/2021 FINDINGS: Interval placement of right reverse shoulder arthroplasty. Interval reduction of previously noted comminuted humeral head and neck fracture. Expected postsurg ical changes are seen including soft tissue swelling and subcutaneous emphysema. The visualized portions of the lungs are clear. IMPRESSION: Expected postoperative appearance status post placement of shoulder arthroplasty. (1) Fracture of head of right humerus Encounter type: initial encounter Fracture type: closed Qualified Code(s): S42.291A - Other displaced fracture of upper end of right humerus, initial encounter for closed fracture
--- NOTE | 2021-08-26 14:10 | Discharge Summary ---
Date of Service August 26, 2021 Admission HPI Per Admitting Provider History of Present Illness (including history relevant to procedure): This 70-year-old female presents the clinic today for her initial evaluation by Dr. Lopez for a right shoulder proximal humerus fracture that she sustained after [place] the [place] with a [employer] group yesterday. Patient states she tripped and fell on her outstretched right upper extremity. She was seen at the emergency department, diagnosed with a fracture and advised to follow-up with an instructional technology specialist. After the x-ray confirmed the fracture a CT was also ordered for surgical purposes. Review Of Systems: A 12 point review of systems is formed and is unremarkable except for those things stated in the HPI and past medical history. Past Medical History: Problems: Proximal humerus fracture Shoulder injury History of colon cancer Procedure History Procedure Procedure Date Comments Colon resection 2004 Allergies and Sensitivities: Adhesive bandage(Itch) Social history: Completely unremarkable Family history: Cancer Current Home Meds: (Last Updated 08/14 12:11) alendronate (Fosamax 70 mg oral tablet) 70 mg PO weekly calcium carbonate (Caltrate) PO Daily multivitamin PO Daily ondansetron (Zofran 4 mg oral tablet) 4 mg PO q8h PRN: as needed for nausea/vomiting unknown medication pain med from ER Vital Signs: Height: 154 cm; weight: 62 kg; blood pressure: 112/74; pulse: 64; temperature: 36.6; oxygen saturation: 97% Discharge Data Consultations 08/25/21 15:33 Consult Hospitalist Routine Procedures Performed Operation Date: 08/25/21 09:45 Actual Procedures p Right Total Shoulder Arthroplasty Reverse(Right) - Vitor Lopez MD Hospital Course (1) Fracture of head of right humerus: Patient was admitted to [facility] after undergoing an elective right reverse total shoulder arthroplasty with Dr. Lopez. Surgery was performed on August 25, 2021. This was performed for treatment of a right proximal humerus, comminuted fracture. She tolerated the procedure well. Her surgery was performed with general anesthesia. She also had a peripheral nerve block. She was given 1 g of IV Ancef for surgical prophylaxis which was continued for 24 hours after her surgery. She was allowed out of bed, weightbearing as tolerated on bilateral lower extremities. Physical therapy and Occupational Therapy consults were placed. She was given a regular diet and her home medications were continued during her inpatient stay. She did not develop any postoperative nausea, vomiting, chest pain or shortness of breath. She did not develop any lightheadedness or dizziness. She did have some mild low blood pressure after her surgery. This was treated with an IV saline bolus. She was not symptomatic from the hypotension. She did not develop any postoperative nausea or vomiting. Her postoperative lab work was normal. She was safe in physical therapy and Occupational Therapy and was able to do all the exercises they went over with her. She was Able to comfortably ambulate throughout the hallways. Her pain was well controlled with oral Tylenol. On postoperative day 1 she was evaluated by myself as well as Dr. Lopez. Her postoperative dressings were kept in place. There is no drainage on the dressings. The resealed. She had normal sensation in her hand as well as good distal pulses. She was placed on aspirin 81 mg twice daily for DVT prophylaxis which will be continued for 4 weeks after surgery. Also LAMAR stockings for 2 weeks and AVM possible boots during her inpatient stay. She was also started on Vitamin C and iron supplements. She will take this for 2 to 4 weeks after her surgery. Also instructed to use Colace while on pain medication to prevent constipation. She was provided with exercises that she can do on her own by her physical therapist. She will follow-up in our office as scheduled in 2 days for dressing change and her first postoperative physical therapy appointment. All questions were answered. She was deemed safe for discharge and was discharged to her home in stable condition on August 26, 2021.
[2021-08-29] MEDS ORDERED: ALENDRONATE SODIUM 70 MG TAB PO SCH (09:00)
== END 2021-08-26 15:40 | disposition home health service (06) ==
LOC: ASU 07:24 → PACUINP 15:26 → INTOOBSV 15:26 → 3W 17:58